=== PATIENT | male | born 1965 | race African-American/Black ===

== ENCOUNTER 2019-06-17 02:30 | Emergency (ER) | payer MEDICAID ==
[~2019-06-17] VITALS: Ht 172.7 cm; Wt 63.5 kg
--- NOTE | 2019-06-17 03:26 | NUR ---
ED Nurse Note: Pt brought in by ambulance from streets. Pt reporting being intoxicated and bilateral leg pain. Pt is A&Ox3. VSS
[2019-06-17 03:27] VITALS: BP 143/100
[2019-06-17 03:40] VITALS: BP 143/100
--- NOTE | 2019-06-17 03:40 | NUR ---
ER DISCHARGE NOTE: Patient is cleared to be discharged per ERMD, pt is aox4, on room air, with stable vital signs. pt was given dc and prescription instructions, pt was able to verbalize understanding, pt id band removed. pt is able to ambulate with steady gait. pt took all belongings.
--- NOTE | 2019-06-17 03:50 | Emergency Room Report ---
History of Present Illness General Chief Complaint: Alcohol Intoxication Source: Patient Present Illness HPI Patient is a 53-year-old male presented after increased leg pain. Patient had prior history of chronic pain to his leg after reportedly having surgery for infection. This happened many years ago. He states this was greater than 10 years ago. Patient reports having worsening pain. He was brought in by EMS. He reports having recent alcohol intake. He denies any fever. He reports having generalized pain.Patient denies any recent trauma. Allergies: Coded Allergies: No Known Allergies (Unverified , 06/17/19) Patient History Past Medical History: see triage record Reviewed Nursing Documentation: PMH: Agreed; PSxH: Agreed Review of Systems All Other Systems: negative except mentioned in HPI Physical Exam Vital Signs Date Time Temp Pulse Resp B/P (MAP) Pulse Ox O2 Delivery O2 Flow Rate FiO2 06/17/19 02:32 98.8 89 18 143/100 (114) 98 Room Air General Appearance: well appearing, no apparent distress, alert, GCS 15 Head: normocephalic, atraumatic ENT: hearing grossly normal, normal voice Neck: full range of motion, supple Respiratory: no respiratory distress, speaking full sentences Cardiovascular #1: normal inspection Gastrointestinal: normal inspection Musculoskeletal: normal inspection Neurologic: normal inspection, alert, oriented x3, application support analyst III-XII nml as tested, normal gait Psychiatric: mood/affect normal Skin: no rash Medical Decision Making Diagnostic Impression: Primary Impression: Chronic leg pain ER Course Patient presented for leg pain. Differential include was not limited to differential diagnosis include was not limited to cellulitis, neuropathy, abscess among others. Patient has a benign exam and does not appear to require any imaging or laboratory testing at this time. Patient does not appear to have any evidence of infection. Pulses appear to be normal. Patient's compartments. Be soft. Patient does appear to have some chronic pain to his left lower extremity. He was given medications for discomfort. Patient subsequently eloped without notifying staff. He appeared to be stable at the time of elopement. EKG Diagnostic Results Rate: normal Rhythm: NSR ST Segments: no acute changes Last Vital Signs Date Time Temp Pulse Resp B/P (MAP) Pulse Ox O2 Delivery O2 Flow Rate FiO2 06/17/19 03:27 98.8 80 18 143/100 98 Room Air Status: improved Disposition: HOME, SELF-CARE Condition: Stable Referrals: NOT CHOSEN [facility]/MD,REFERRING (PCP) Tj Dupree MD Jun 17, 2019 03:50
--- NOTE | 2019-06-18 15:01 | Cardiology Report ---
APPROVED REPORT EKG Measurement Heart [id number] Normal sinus rhythm Normal ECG
== END 2019-06-17 03:40 | disposition home or self-care (01) ==
LOC: EDBD 02:30 → EMR 02:50
DX: G89.29 Other chronic pain (principal); M79.605 Pain in left leg
CPT/HCPCS: 93005; Z7502; 99283